=== PATIENT | male | born 1995 | race Two or more races ===

== ENCOUNTER 2018-07-17 07:53 | Emergency (ER) | payer BC, OTHER ==
[2018-07-17 07:59] VITALS: BP 145/80
[2018-07-17] MEDS ORDERED: FAMOTIDINE INJ/PF 20 MG/2 ML SDV IV ONE (08:49)
[2018-07-17] MEDS ORDERED: ALBUTEROL SULFATE HFA (90 MCG/PUFF) 8 GM MDI (1 MDI/ER DISP) IH ONE (08:49)
[2018-07-17] MEDS ORDERED: METHYLPREDNISOLONE INJ 125 MG/2 ML SDV IV ONE (08:49)
--- NOTE | 2018-07-17 08:55 | ER Document Report ---
HPI - HPI Pain Level: 4 Notes: Patient is an otherwise healthy 22-year-old male who presents with several complaints today. Patient has had cough and congestion for 1 month now. Patient reports that his roommate's gave him an Augmentin tablet to take this morning and patient ended up having a rash and itching afterwards. Patient denies any past medical history, denies any past surgical history and denies any allergies. - DERM Skin Color: Normal Past Medical History - General Information source: Patient - Social History Smoking Status: Current Every Day Smoker Chew tobacco use (# tins/day): No Frequency of alcohol use: Social Drug Abuse: None Family History: Reviewed & Not Pertinent Patient has suicidal ideation: No Patient has homicidal ideation: No - Medical History Medical History: Negative Renal/ Medical History: Denies: Hx Peritoneal Dialysis Surgical Hx: Negative - Immunizations Immunizations up to date: Yes Vertical Provider Document - CONSTITUTIONAL Notes: PHYSICAL EXAMINATION: GENERAL: Well-appearing, well-nourished and in no acute distress. HEAD: Atraumatic, normocephalic. EYES: Pupils equal round extraocular movements intact, conjunctiva are normal. ENT: Nares patent, rhinorrhea present, cobblestoning pattern noted to oropharynx. NECK: Normal range of motion LUNGS: No respiratory distress, bronchospasm with deep breaths, mild expiratory wheezing noted. Musculoskeletal: Normal range of motion NEUROLOGICAL: Normal speech, normal gait. PSYCH: Normal mood, normal affect. SKIN: Warm, Dry, normal turgor, no rashes or lesions noted. - INFECTION CONTROL TRAVEL OUTSIDE OF THE [place] IN LAST 30 DAYS: No Course - Re-evaluation Re-evalutation: Patient's physical examination is consistent with acute bronchitis. Due to the fact the patient has had the symptoms for 3-[address] patient on antibiotic therapy at this time. Patient instructed to not take penicillin anymore as he describes having an acute allergic reaction to same. Patient will be started on doxycycline, albuterol, Pepcid, and prednisone. - Vital Signs Vital signs: Temp Pulse Resp BP Pulse Ox 97.4 F 86 16 145/80 H 95 07/17/18 07:58 07/17/18 07:58 07/17/18 07:58 07/17/18 07:58 07/17/18 07:58 Discharge - Discharge Clinical Impression: Bronchitis with bronchospasm Allergic reaction to drug Qualifiers: Encounter type: initial encounter Qualified Code(s): T78.40XA - Allergy, unspecified, initial encounter Condition: Stable Disposition: HOME, SELF-CARE Additional Instructions: Acute Allergic Reaction to Medication Your symptoms are due to an allergic reaction. The physician feels that a medication you've taken is responsible. Medication allergy can cause hives, swelling of the hands, feet and face, hoarseness, and difficulty swallowing or breathing. This type of allergy can also be caused by animal dander, foods, infection, or insect bites. Medication can cause allergy even when prior use of this same medication caused no problems. Emergency treatment may include adrenalin and antihistamines. Home treatment includes the following: (1) Stop the suspected medication. (2) Oral antihistamines for the next four to five days (Benadryl, Atarax). (3) Avoid aspirin until the hives completely disappear. (4) Avoid hot baths or showers until the hives are completely gone. Call the doctor if faintness, difficulty swallowing, tightness in the chest or wheezing occurs. Bronchitis with Bronchospasm (Wheezing) You have bronchitis with bronchospasm (wheezing). Sometimes people develop wheezing with a chest cold. This occurs either because of an underlying tendency toward asthma or because the virus itself irritates the bronchial tubes. This irritation causes cough, shortness of breath, and wheezing. Emergency treatment of bronchospasm may include adrenaline shots or bronchodilator aerosol. You may feel lightheaded and have a rapid pulse for an hour or two. Rest and get plenty of fluids. At home, we'll treat you with a bronchodilator inhaler. Corticosteroids may be required for some patients. Until you recover, avoid chemical fumes, dusts, pollens, and exercising in very cold or dry air. If you smoke, stop now! Most cases of bronchitis get better without antibiotics. We prescribe antibiotics when we believe bacteria are damaging your airways, or if there's high risk the bronchitis will worsen into pneumonia. Increase your fluid intake. A cool mist humidifier may make your lungs more comfortable. An expectorant (cough medicine that loosens phlegm) can help. Repeated episodes of bronchitis and bronchospasm may result in lung damage -- for example, chronic bronchitis, recurrent pneumonias, or emphysema. If you develop a fever, increased wheezing, chest pain, or severe shortness of breath, you should contact the doctor immediately. Please take all medications as prescribed, do not take penicillin or amoxicillin again as this is probably the cause of your hives and itching. Take Benadryl every 6 hours when you are not working. Return to the emergency department if you develop shortness of breath, difficulty breathing or any other symptom that is concerning to you. Prescriptions: Doxycycline Hyclate 100 mg PO BID #14 capsule Famotidine [Pepcid 20 mg Tablet] 20 mg PO BID #10 tablet Prednisone [Deltasone 20 mg Tablet] 3 tab PO DAILY 5 Days #15 tablet
== END 2018-07-17 09:19 | disposition home or self-care (01) ==
LOC: ER 07:53
DX: J40 Bronchitis, not specified as acute or chronic (principal); L27.0 Generalized skin eruption due to drugs and medicaments taken internally; T36.0X5A Adverse effect of penicillins, initial encounter; R05 Cough; F17.200 Nicotine dependence, unspecified, uncomplicated
CPT/HCPCS: 99283; 96374; 96375; J2930; S0028; J3490